=== PATIENT | female | born 1990 | race Caucasian/White ===

== ENCOUNTER 2017-04-23 21:19 | Emergency (ER) | payer MEDICAID ==
[2017-04-23 21:27] VITALS: O2SAT 100
[2017-04-23 21:44] LABS: HCG,QUALITATIVE URINE POSITIVE (NEGATIVE)
[2017-04-23 21:48] LABS: SQUAMOUS EPITHIAL 9 /hpf (0-5); URINE AMORPHOUS SEDIMENT FEW /ul (<OCC)
[2017-04-23 21:52] LABS: URINE BILIRUBIN NEGATIVE (NEGATIVE); URINE CLARITY SL HAZY (Clear); URINE COLOR YELLOW (YELLOW); URINE GLUCOSE (UA) NEGATIVE (Normal)
[2017-04-23 21:53] LABS: URINE BLOOD MODERATE (NEGATIVE); URINE LEUKOCYTE ESTERASE TRACE Leu/uL (Negative); URINE NITRATE NEGATIVE (NEGATIVE); URINE PROTEIN NEGATIVE (NEGATIVE); URINE UROBILINOGEN 0.2 mg/dL (0.2-1.0)
[2017-04-23 22:36] LABS: EOS # 0.1 K/uL (0.0-0.7)
--- NOTE | 2017-04-23 23:27 | US ---
EXAM: US Transabd First Trimester First Gest EXAM DATE/TIME: 04/23/2017 10:04 PM CLINICAL HISTORY: 26 years old, female; Signs and symptoms; Lmp or gestational age (in weeks): 11-8-17; Other: Spotting; ; Additional info: Vaginal bleeding TECHNIQUE: Real-time ultrasound of the transabd first trimester first gest with image documentation. COMPARISON: US - PREG 1ST TRIMESTER/OB TV 2015-07-16 02:00 FINDINGS: The uterus measures 12 x 7 x 9 cm. There is a live intrauterine . Measurements correspond to a gestational age of 12 weeks 4 days. A heart rate of 165 beats per minute was obtained. The cervix measures 4 cm. The maternal ovaries were not visualized. IMPRESSION: Single live IUP.
[2017-04-23 23:32] LABS: BASO % 0.3 % (0.0-2.0); EOS % 0.8 % (0.0-4.0); HEMOGLOBIN 12.8 g/dL (11.0-16.0); LYMPH % 18.4 % (20.0-40.0); MEAN CELL VOLUME 82.3 fL (81.0-99.0); MEAN CORPUSCULAR HEMOGLOBIN 30.4 pg (27.0-31.0); MEAN PLATELET VOLUME 8.6 fL (7.2-11.7); MONO # 0.8 K/uL (0.0-0.8); MONO % 7.7 % (0.0-10.0); NEUT # 8.1 K/uL (1.8-7.0); NEUT % 72.8 % (50.0-75.0); RBC 4.21 Mil/uL (3.80-5.20); RED CELL DISTRIBUTION WIDTH 12.9 % (11.5-14.5); WHITE BLOOD COUNT 11.1 K/uL (4.8-10.8)
--- NOTE | 2017-04-23 23:40 | C.PDOC ---
History Of Present Illness Patient is a 12-week 26 y/o female who presents to the ED with complaints of mild suprapubic cramping and aching pain in lower back. Patient notes vaginal spotting since 1 hour ago as well. Patient has a Hx of 2 prior miscarriages at 6 weeks. Patient has no other physical complaints at this time. Time Seen by Provider: 04/23/17 21:59 Chief Complaint (Nursing): Female Genitourinary History Per: Patient History/Exam Limitations: no limitations Onset/Duration Of Symptoms: Gradual Current Symptoms Are (Timing): Still Present Quality Of Discomfort: Cramping Associated Symptoms: Back Pain ("aching" in lower back) Recent travel outside of the [place]: No Past Medical History Reviewed: Historical Data, Nursing Documentation, Vital Signs Vital Signs: Last Vital Signs Temp 98.8 F 04/23/17 21:24 Pulse 77 04/23/17 21:24 Resp 20 04/23/17 21:24 BP 154/84 H 04/23/17 21:24 Pulse Ox 100 04/23/17 23:45 - Medical History PMH: No Chronic Diseases Surgical History: No Surg Hx Family History: States: No Known Family Hx - Social History Hx Tobacco Use: No Hx Alcohol Use: No Hx Substance Use: No - Immunization History Hx Tetanus Toxoid Vaccination: No Hx Influenza Vaccination: No Hx Pneumococcal Vaccination: No Review Of Systems Gastrointestinal: Positive for: Abdominal Pain (suprapubic) Genitourinary: Positive for: Vaginal Bleeding Musculoskeletal: Positive for: Back Pain ("achy" lower back) Skin: Negative for: Rash, Lesions Physical Exam - Physical Exam Appears: Well, Non-toxic, No Acute Distress Skin: Normal Color, Warm, Dry Head: Atraumatic, Normacephalic Eye(s): bilateral: Normal Inspection Oral Mucosa: Moist Chest: Symmetrical Cardiovascular: Rhythm Regular, No Murmur Respiratory: Normal Breath Sounds, No Rales, No Rhonchi, No Wheezing Gastrointestinal/Abdominal: Soft, No Tenderness, No Guarding, No Rebound Neurological/Psych: Oriented x3, Normal Speech, Normal Cognition ED Course And Treatment - Laboratory Results Result Diagrams: 04/23/17 22:30 Lab Interpretation: No Acute Changes Interpretation Of Abnormal: BHCG 45754.0. Blood type B- O2 Sat by Pulse Oximetry: 100 (room air) Pulse Ox Interpretation: Normal - CT Scan/US transabdominal Other Rad Studies (CT/US): Interpreted By Me, Read By Radiologist CT/US Interpretation: EXAM: US Transabd First Trimester First Gest. EXAM DATE/TIME: 04/23/2017 10:04 PM. CLINICAL HISTORY: 26 years old, female; Signs and symptoms; Lmp or gestational age (in weeks): 11-8-17; Other: Spotting ; ; Additional info: Vaginal bleeding. TECHNIQUE: Real-time ultrasound of the transabd first trimester first gest with image documentation. COMPARISON: US - PREG 1ST TRIMESTER/OB TV 2015-07-16 02:00. FINDINGS: The uterus measures 12 x 7 x 9 cm. There is a live intrauterine . Measurements correspond to a gestational age of 12 weeks 4 days. A heart rate of 165 beats per minute was obtained. The cervix measures 4 cm. The maternal ovaries were not visualized. IMPRESSION: Single live IUP. Thank you for allowing us to participate in the care of your patient. Progress Note: Patient treated with Rhogam in ED Reevaluation Time: 23:54 Reassessment Condition: Improved (No persistent vaginal bleeding.) Medical Decision Making Medical Decision Making: Plan: * Rhogam stat * US transabdominal Disposition Counseled Patient/Family Regarding: Studies Performed, Diagnosis, Need For Followup - Disposition Referrals: [facility] [Outside] Disposition: HOME/ ROUTINE Disposition Time: 23:55 Condition: STABLE Instructions: Threatened Miscarriage (ED) Forms: [employer] (Tuvaluan) - Clinical Impression Clinical Impression: Threatened - Scribe Statement The provider has reviewed the documentation as recorded by the Scribe Yanira Connor All medical record entries made by the Scribe were at my direction and personally dictated by me. I have reviewed the chart and agree that the record accurately reflects my personal performance of the history, physical exam, medical decision making, and the department course for this patient. I have also personally directed, reviewed, and agree with the discharge instructions and disposition.
[2017-04-24 00:16] VITALS: BP 118/77; PULSE 88; RESP 16; TEMP 97.5
== END 2017-04-24 01:23 | disposition home or self-care (01) ==
LOC: C.ER 21:19
DX: O20.0 Threatened abortion (principal); Z3A.12 12 weeks gestation of pregnancy
CPT/HCPCS: 76801; 81001; 84702; 84703; 85025; 86850; 86900; 96372; 99284; J2792